=== PATIENT | male | born 1985 | race Two or more races ===

== ENCOUNTER 2018-08-06 13:31 | Inpatient (IN) | payer MEDICAID ==
[~2018-08-06] VITALS: Ht 172.7 cm; Wt 79.4 kg
[2018-08-06] MEDS: Morphine Sulfate 4mg/ml Inj (IV USE ONLY) IVP ONE ×2 (13:45→15:44)
[2018-08-06] MEDS ORDERED: Ketorolac 30mg Inj IV ONE (13:45)
--- NOTE | 2018-08-06 14:00 | NUR ---
ED Nurse Note:pt. was BIBA for abd pain N/V, pt. is A/Ox4 ambulatory, looks drawsy, placed on athletic monitor, VSS
--- NOTE | 2018-08-06 14:12 | NUR ---
ED Nurse Note:blood and urine sent to labs, IV fluids and meds given
[2018-08-06 14:13] VITALS: BP 114/68
[2018-08-06 14:16] LABS: BASOPHILS % (AUTO) 1.2 % (0.0-2.0); EOSINOPHILS % (AUTO) 0.8 % (0.0-3.0); HEMATOCRIT 40.8 % (42.0-52.0); HEMOGLOBIN 14.1 G/DL (14.2-18.0); LYMPHOCYTES % (AUTO) 30.9 % (20.0-45.0); MEAN CORPUSCULAR VOLUME 91 FL (80-99); MONOCYTES % (AUTO) 9.5 % (1.0-10.0); NEUTROPHILS % (AUTO) 57.6 % (45.0-75.0); PLATELET COUNT 151 K/UL (150-450); RED BLOOD COUNT 4.49 M/UL (4.70-6.10); RED CELL DISTRIBUTION WIDTH 14.2 % (11.6-14.8); WHITE BLOOD COUNT 6.9 K/UL (4.8-10.8)
[2018-08-06 14:19] LABS: APPEARANCE,URINE CLEAR; BILIRUBIN, URINE NEGATIVE (NEGATIVE); COLOR,URINE PALE YELLOW; GLUCOSE, URINE (UA) 4+ (NEGATIVE); KETONES,URINE NEGATIVE (NEGATIVE); LEUKOCYTE ESTERASE ,URINE NEGATIVE (NEGATIVE); NITRITE,URINE NEGATIVE (NEGATIVE); PH,URINE 6.5 (4.5-8.0); PROTEIN,URINE NEGATIVE (NEGATIVE); UROBILINOGEN,URINE NORMAL MG/DL (0.0-1.0)
[2018-08-06 14:26] LABS: ANION GAP 14 mmol/L (5-15); BLOOD UREA NITROGEN 6 mg/dL (7-18); CALCIUM 8.6 MG/DL (8.5-10.1); CARBON DIOXIDE 23 MMOL/L (21-32); CHLORIDE 99 MMOL/L (98-107); POTASSIUM 2.9 MMOL/L (3.5-5.1); SODIUM 136 MMOL/L (136-145)
[2018-08-06 14:30] LABS: ALANINE AMINOTRANSFERASE 103 U/L (12-78); ALBUMIN 3.7 G/DL (3.4-5.0); ALBUMIN/GLOBULIN RATIO 1.1 (1.0-2.7); ALKALINE PHOSPHATASE 160 U/L (46-116); ASPARTATE AMINO TRANSFERASE 216 U/L (15-37); BILIRUBIN,TOTAL 0.3 MG/DL (0.2-1.0)
--- NOTE | 2018-08-06 14:42 | Emergency Room Report ---
History of Present Illness General Chief Complaint: Abdominal Pain Source: Patient (Narayan Klein MD) Present Illness HPI 33-year-old male resents ED for evaluation. Brought in by EMS complaining of abdominal pain and vomiting. Started today. Pain is right sided, radiates from right flank to right upper quadrant. Also notes pain full urination and blood in urine. Pain is 10 out of 10, sharp, no other aggravating relieving factors. Denies any other associated symptoms (Narayan Klein MD) Allergies: Coded Allergies: No Known Allergies (Unverified , 08/06/18) Patient History Past Medical History: DM Past Surgical History: none Pertinent Family History: none Social History: Denies: smoking, alcohol use, drug use Immunizations: UTD Reviewed Nursing Documentation: PMH: Agreed; PSxH: Agreed (Narayan Klein MD) Nursing Documentation-PMH Past Medical History: No History, Except For Hx Diabetes: Yes (Narayan Klein MD) Review of Systems All Other Systems: negative except mentioned in HPI (Narayan Klein MD) Physical Exam Vital Signs Date Time Temp Pulse Resp B/P (MAP) Pulse Ox O2 Delivery O2 Flow Rate FiO2 08/06/18 13:31 97.9 120 18 99 Room Air 08/06/18 14:13 114/68 Sp02 EP Interpretation: reviewed, normal General Appearance: alert, GCS 15, non-toxic, moderate distress Head: normocephalic, atraumatic Eyes: bilateral eye normal inspection, bilateral eye PERRL ENT: hearing grossly normal, normal pharynx, no angioedema, normal voice Neck: full range of motion, supple/symm/no masses Respiratory: chest non-tender, lungs clear, normal breath sounds, speaking full sentences Cardiovascular #1: regular rate, rhythm, no edema Cardiovascular #2: 2+ carotid (R), 2+ carotid (L), 2+ radial (R), 2+ radial (L) , 2+ dorsalis pedis (R), 2+ dorsalis pedis (L) Gastrointestinal: normal bowel sounds, soft, non-distended, no guarding, no rebound, tenderness - RUQ Rectal: deferred Genitourinary: normal inspection, CVA tenderness (R) Musculoskeletal: back normal, gait/station normal, normal range of motion, non- tender Neurologic: alert, oriented x3, responsive, motor strength/tone normal, sensory intact, speech normal Psychiatric: judgement/insight normal, memory normal, mood/affect normal, no suicidal/homicidal ideation Reflexes: 3+ bicep (R), 3+ bicep (L), 3+ tricep (R), 3+ tricep (L), 3+ knee (R) , 3+ knee (L) Skin: normal color, no rash, warm/dry, well hydrated Lymphatic: no adenopathy (Narayan Klein MD) Medical Decision Making Diagnostic Impression: Primary Impression: Abdominal pain Additional Impressions: Alcohol abuse Fatty liver Tachycardia Renal calculus, bilateral Labs Test 08/06/18 13:50 08/06/18 14:00 White Blood Count 6.9 K/UL (4.8-10.8) Red Blood Count 4.49 M/UL (4.70-6.10) Hemoglobin 14.1 G/DL (14.2-18.0) Hematocrit 40.8 % (42.0-52.0) Mean Corpuscular Volume 91 FL (80-99) Mean Corpuscular Hemoglobin 31.3 PG (27.0-31.0) Mean Corpuscular Hemoglobin Concent 34.5 G/DL (32.0-36.0) Red Cell Distribution Width 14.2 % (11.6-14.8) Platelet Count 151 K/UL (150-450) Mean Platelet Volume 6.6 FL (6.5-10.1) Neutrophils (%) (Auto) 57.6 % (45.0-75.0) Lymphocytes (%) (Auto) 30.9 % (20.0-45.0) Monocytes (%) (Auto) 9.5 % (1.0-10.0) Eosinophils (%) (Auto) 0.8 % (0.0-3.0) Basophils (%) (Auto) 1.2 % (0.0-2.0) Sodium Level 136 MMOL/L (136-145) Potassium Level 2.9 MMOL/L (3.5-5.1) Chloride Level 99 MMOL/L (98-107) Carbon Dioxide Level 23 MMOL/L (21-32) Anion Gap 14 mmol/L (5-15) Blood Urea Nitrogen 6 mg/dL (7-18) Creatinine 1.0 MG/DL (0.55-1.30) Estimat Glomerular Filtration Rate > 60 mL/min (>60) Glucose Level 428 MG/DL (74-106) Calcium Level 8.6 MG/DL (8.5-10.1) Total Bilirubin 0.3 MG/DL (0.2-1.0) Aspartate Amino Transf (AST/SGOT) 216 U/L (15-37) Alanine Aminotransferase (ALT/SGPT) 103 U/L (12-78) Alkaline Phosphatase 160 U/L (46-116) Total Protein 7.1 G/DL (6.4-8.2) Albumin 3.7 G/DL (3.4-5.0) Globulin 3.4 g/dL Albumin/Globulin Ratio 1.1 (1.0-2.7) Lipase 444 U/L (73-393) Urine Color Pale yellow Urine Appearance Clear Urine pH 6.5 (4.5-8.0) Urine Specific [place] 1.005 (1.005-1.035) Urine Protein Negative (NEGATIVE) Urine Glucose (UA) 4+ (NEGATIVE) Urine Ketones Negative (NEGATIVE) Urine Blood 5+ (NEGATIVE) Urine Nitrite Negative (NEGATIVE) Urine Bilirubin Negative (NEGATIVE) Urine Urobilinogen Normal MG/DL (0.0-1.0) Urine Leukocyte Esterase Negative (NEGATIVE) Urine RBC 30-40 /HPF (0 - 0) Urine WBC 0 /HPF (0 - 0) Urine Squamous Epithelial Cells Occasional /LPF Urine Bacteria Occasional /HPF (NONE) Urine Opiates Screen Negative (NEGATIVE) Urine Barbiturates Screen Negative (NEGATIVE) Phencyclidine (PCP) Screen Negative (NEGATIVE) Urine Amphetamines Screen Negative (NEGATIVE) Urine Benzodiazepines Screen Negative (NEGATIVE) Urine Cocaine Screen Negative (NEGATIVE) Urine Marijuana (THC) Screen Negative (NEGATIVE) (Narayan Klein MD) ER Course Patient was endorsed to me by Dr. klein. Patient was noted to have significant abdominal pain. He reports recent alcohol intake and states he only drank 2 beers. Patient's blood alcohol was noted to be greater than 300. Liver function tests show some evidence of alcoholic hepatitis. Patient's lipase was noted to be somewhat elevated. CT the abdomen pelvis read by radiology showed: Patient noted to be somewhat tachycardic. He was started on IV fluids and as well as IV acid blockers by previous physician. Patient was noted to have some significant abdominal pain and will likely require further inpatient work-up. Numerous small nonobstructive bilateral renal stones. No ureteral or bladder stone. No renal obstruction. Mild left perinephric stranding. Incidental: Normal appendix. Colonic diverticulosis without acute diverticulitis. Small bilateral fat-containing inguinal hernias. Small spleen. Fatty enlarged liver. Distended gallbladder. Possible sludge. No CT evidence of pancreatitis. Small peripancreatic lymph nodes. Mild bibasilar lung atelectasis. Patient was discussed with Dr. Zhang Bella who is covering for [facility] for inpatient management due to panel physician Labs Test 08/06/18 13:50 08/06/18 14:00 White Blood Count 6.9 K/UL (4.8-10.8) Red Blood Count 4.49 M/UL (4.70-6.10) Hemoglobin 14.1 G/DL (14.2-18.0) Hematocrit 40.8 % (42.0-52.0) Mean Corpuscular Volume 91 FL (80-99) Mean Corpuscular Hemoglobin 31.3 PG (27.0-31.0) Mean Corpuscular Hemoglobin Concent 34.5 G/DL (32.0-36.0) Red Cell Distribution Width 14.2 % (11.6-14.8) Platelet Count 151 K/UL (150-450) Mean Platelet Volume 6.6 FL (6.5-10.1) Neutrophils (%) (Auto) 57.6 % (45.0-75.0) Lymphocytes (%) (Auto) 30.9 % (20.0-45.0) Monocytes (%) (Auto) 9.5 % (1.0-10.0) Eosinophils (%) (Auto) 0.8 % (0.0-3.0) Basophils (%) (Auto) 1.2 % (0.0-2.0) Sodium Level 136 MMOL/L (136-145) Potassium Level 2.9 MMOL/L (3.5-5.1) Chloride Level 99 MMOL/L (98-107) Carbon Dioxide Level 23 MMOL/L (21-32) Anion Gap 14 mmol/L (5-15) Blood Urea Nitrogen 6 mg/dL (7-18) Creatinine 1.0 MG/DL (0.55-1.30) Estimat Glomerular Filtration Rate > 60 mL/min (>60) Glucose Level 428 MG/DL (74-106) Calcium Level 8.6 MG/DL (8.5-10.1) Total Bilirubin 0.3 MG/DL (0.2-1.0) Aspartate Amino Transf (AST/SGOT) 216 U/L (15-37) Alanine Aminotransferase (ALT/SGPT) 103 U/L (12-78) Alkaline Phosphatase 160 U/L (46-116) Total Protein 7.1 G/DL (6.4-8.2) Albumin 3.7 G/DL (3.4-5.0) Globulin 3.4 g/dL Albumin/Globulin Ratio 1.1 (1.0-2.7) Lipase 444 U/L (73-393) Serum Alcohol 319 mg/dL Urine Color Pale yellow Urine Appearance Clear Urine pH 6.5 (4.5-8.0) Urine Specific [place] 1.005 (1.005-1.035) Urine Protein Negative (NEGATIVE) Urine Glucose (UA) 4+ (NEGATIVE) Urine Ketones Negative (NEGATIVE) Urine Blood 5+ (NEGATIVE) Urine Nitrite Negative (NEGATIVE) Urine Bilirubin Negative (NEGATIVE) Urine Urobilinogen Normal MG/DL (0.0-1.0) Urine Leukocyte Esterase Negative (NEGATIVE) Urine RBC 30-40 /HPF (0 - 0) Urine WBC 0 /HPF (0 - 0) Urine Squamous Epithelial Cells Occasional /LPF Urine Bacteria Occasional /HPF (NONE) Urine Opiates Screen Negative (NEGATIVE) Urine Barbiturates Screen Negative (NEGATIVE) Phencyclidine (PCP) Screen Negative (NEGATIVE) Urine Amphetamines Screen Negative (NEGATIVE) Urine Benzodiazepines Screen Negative (NEGATIVE) Urine Cocaine Screen Negative (NEGATIVE) Urine Marijuana (THC) Screen Negative (NEGATIVE) (Igor Jackson MD) Last Vital Signs Date Time Temp Pulse Resp B/P (MAP) Pulse Ox O2 Delivery O2 Flow Rate FiO2 08/06/18 14:13 97.9 100 18 114/68 99 Room Air (Narayan Klein MD) Status: unchanged (Igor Jackson MD) Disposition: ADMITTED INPATIENT Condition: Serious Narayan Klein MD August 06, 2018 14:42 Igor Jackson MD August 06, 2018 15:42
[2018-08-06 15:19] VITALS: BP 124/79
[2018-08-06] MEDS ORDERED: LORazepam Inj 2mg/ml 1ml IV ONE (15:45)
[2018-08-06] MEDS ORDERED: METFORMIN HCL1000 M1 ORAL (15:52)
--- NOTE | 2018-08-06 17:02 | NUR ---
ED Nurse Note:called report to [address] given to Sujata pt. was taken up stairs
[2018-08-06 17:10] VITALS: BP 132/95
--- NOTE | 2018-08-06 17:10 | NUR ---
NURSE NOTES: ADMITTED A 33YR OLD MALE WITH DX OF CHOLELITHIASIS. AWAKE/LERT. ADMISSION CARE DONE SEE ADM. ASSESSMENT.
--- NOTE | 2018-08-06 17:34 | NUR ---
NURSE NOTES: DR.S GALLEGOS CALLED FOR ADM ORDERS,LEFT MESSAGE TO RETURN CALL.
[2018-08-06] MEDS ORDERED: Morphine Sulfate 4mg/ml Inj (IV USE ONLY) IVP SCH (17:45)
[2018-08-06] MEDS ORDERED: Morphine Sulfate 2mg/ml Inj(IV/IM USE ONLY) IVP PRN (18:15)
[2018-08-06] MEDS: NovoLOG Insulin Flexpen SUBQ SCH ×2 (18:41→21:13)
[2018-08-06] MEDS: NS w/KCl 20mEq 1000ml 1,000 ML IV SCH (18:44)
[2018-08-06] MEDS ORDERED: GLIPIZIDE5 G1 MC (18:44)
--- NOTE | 2018-08-06 18:52 | NUR ---
NURSE NOTES: RESTING IN BED. IN NO DISTRESS.
--- NOTE | 2018-08-06 18:55 | History and Physical ---
History of Present Illness General Reason for Hospitalization: Abdominal Pain Present Illness HPI 33 year old male with history of diabetes mellitus diagnosed at age 17, reported to have a previous weight of 235 lbs and non compliant with medications until 2 years ago when he was able to establish medical care with PCP in [place]. He was started on Metformin and Glipizide and reports improvement in his HbA1c from 9.5 to 7.7 most recently. He went on an alcohol binge 5 days ago after his father and reports to have been drinking tequila , beer and anything else he could to numb his emotional pain. Today, he came in to the ER via EMS due to acute RUQ pain. Initial work up showed elevated LFT's with alcohol pattern, elevated lipase 444, glucose 428, K 2.9 and replacement with 40 meq given in the ER, CT abdomen with bilateral NON obstructing kidney stones. He is admitted for further medical management. The patient reports that his urine was pink after arriving to the floor and he thinks he could have passed a kidney stone. His pain is 5-6/10 in the RUQ and radiates to the R groin. He has been vomiting and denies hematemesis. No prior history of etoh withdrawal, HTN, CHF, CKD, CAD. Denies any NSAID intake. Allergies: Coded Allergies: No Known Allergies (Unverified , 08/06/18) Medication History Scheduled Glipizide (Glipizide), 5 GM [facility] DAILY, (Reported) Metformin Hcl* (Metformin Hcl*), 1,000 MG ORAL BID, (Reported) Patient History Healthcare decision maker SELF Resuscitation status Full Code Advanced Directive on File No Review of Systems Constitutional: Reports: sweats, weakness ENT: Reports: no symptoms Respiratory: Reports: no symptoms Cardiovascular: Reports: no symptoms Gastrointestinal: Reports: abdominal pain, vomiting Psychiatric: Reports: anxiety, depressed feelings, emotional problems All Other Systems: negative except mentioned in HPI Physical Exam General Appearance: WD/WN, moderate distress, alert oriented x3 Lines, tubes and drains: peripheral HEENT: normocephalic, EOMI Neck: supple Respiratory/Chest: chest wall non-tender, decreased breath sounds Cardiovascular/Chest: tachycardia Abdomen: hypoactive bowel sounds, guarding, tender, other - RUQ TTP, no rebound tenderness Extremities: normal range of motion, non-pitting Skin Exam: normal pigmentation Neurologic: building principal II-XII grossly normal Musculoskeletal: normal muscle bulk Last 24 Hour Vital Signs Date Time Temp Pulse Resp B/P (MAP) Pulse Ox O2 Delivery O2 Flow Rate FiO2 08/06/18 17:22 Room Air 08/06/18 17:10 97.9 109 20 132/95 (107) 98 08/06/18 17:00 97.9 101 18 114/76 99 Room Air 08/06/18 16:12 97.9 08/06/18 15:19 97.9 105 18 124/79 99 Room Air 08/06/18 14:48 97.9 08/06/18 14:13 97.9 100 18 114/68 99 Room Air 08/06/18 13:40 120 18 Room Air 08/06/18 13:31 97.9 120 18 99 Room Air Laboratory Tests Test 08/06/18 13:50 08/06/18 14:00 White Blood Count 6.9 K/UL (4.8-10.8) Red Blood Count 4.49 M/UL (4.70-6.10) L Hemoglobin 14.1 G/DL (14.2-18.0) L Hematocrit 40.8 % (42.0-52.0) L Mean Corpuscular Volume 91 FL (80-99) Mean Corpuscular Hemoglobin 31.3 PG (27.0-31.0) H Mean Corpuscular Hemoglobin Concent 34.5 G/DL (32.0-36.0) Red Cell Distribution Width 14.2 % (11.6-14.8) Platelet Count 151 K/UL (150-450) Mean Platelet Volume 6.6 FL (6.5-10.1) Neutrophils (%) (Auto) 57.6 % (45.0-75.0) Lymphocytes (%) (Auto) 30.9 % (20.0-45.0) Monocytes (%) (Auto) 9.5 % (1.0-10.0) Eosinophils (%) (Auto) 0.8 % (0.0-3.0) Basophils (%) (Auto) 1.2 % (0.0-2.0) Sodium Level 136 MMOL/L (136-145) Potassium Level 2.9 MMOL/L (3.5-5.1) L Chloride Level 99 MMOL/L (98-107) Carbon Dioxide Level 23 MMOL/L (21-32) Anion Gap 14 mmol/L (5-15) Blood Urea Nitrogen 6 mg/dL (7-18) L Creatinine 1.0 MG/DL (0.55-1.30) Estimat Glomerular Filtration Rate > 60 mL/min (>60) Glucose Level 428 MG/DL (74-106) H Calcium Level 8.6 MG/DL (8.5-10.1) Total Bilirubin 0.3 MG/DL (0.2-1.0) Aspartate Amino Transf (AST/SGOT) 216 U/L (15-37) H Alanine Aminotransferase (ALT/SGPT) 103 U/L (12-78) H Alkaline Phosphatase 160 U/L (46-116) H Total Protein 7.1 G/DL (6.4-8.2) Albumin 3.7 G/DL (3.4-5.0) Globulin 3.4 g/dL Albumin/Globulin Ratio 1.1 (1.0-2.7) Lipase Pending Serum Alcohol 319 mg/dL Urine Color Pale yellow Urine Appearance Clear Urine pH 6.5 (4.5-8.0) Urine Specific [place] 1.005 (1.005-1.035) Urine Protein Negative (NEGATIVE) Urine Glucose (UA) 4+ (NEGATIVE) H Urine Ketones Negative (NEGATIVE) Urine Blood 5+ (NEGATIVE) H Urine Nitrite Negative (NEGATIVE) Urine Bilirubin Negative (NEGATIVE) Urine Urobilinogen Normal MG/DL (0.0-1.0) Urine Leukocyte Esterase Negative (NEGATIVE) Urine RBC 30-40 /HPF (0 - 0) H Urine WBC 0 /HPF (0 - 0) Urine Squamous Epithelial Cells Occasional /LPF Urine Bacteria Occasional /HPF (NONE) Urine Opiates Screen Negative (NEGATIVE) Urine Barbiturates Screen Negative (NEGATIVE) Phencyclidine (PCP) Screen Negative (NEGATIVE) Urine Amphetamines Screen Negative (NEGATIVE) Urine Benzodiazepines Screen Negative (NEGATIVE) Urine Cocaine Screen Negative (NEGATIVE) Urine Marijuana (THC) Screen Negative (NEGATIVE) Height (Feet): 5 Height (Inches): 8.00 Weight (Pounds): 175 Medications Current Medications Medications (Trade) Dose Ordered Sig/Landen Route PRN Reason Start Time Stop Time Status Last Admin Dose Admin Bisacodyl (Dulcolax) 10 mg HSPRN PRN RECTAL Constipation 08/06/18 18:15 09/05/18 18:14 Dextrose (Dextrose 50%) 25 ml Q30M PRN IV Hypoglycemia 08/06/18 18:15 09/05/18 18:14 Dextrose (Dextrose 50%) 50 ml Q30M PRN IV Hypoglycemia 08/06/18 18:15 09/05/18 18:14 Docusate Sodium (Colace) 100 mg EVERY 12 HOURS ORAL 08/06/18 21:00 09/05/18 20:59 Enoxaparin Sodium (Lovenox) 40 mg Q24H SUBQ 08/06/18 20:00 09/05/18 19:59 Famotidine (Pepcid) 40 mg DAILY ORAL 08/07/18 09:00 09/06/18 08:59 Insulin Aspart (NovoLOG) BEFORE MEALS AND HS SUBQ 08/06/18 21:00 09/05/18 20:59 Morphine Sulfate (Morphine Sulfate) 2 mg Q4H PRN IVP Moderate Pain (Pain Scale 4-6) 08/06/18 18:15 08/13/18 18:14 Morphine Sulfate (Morphine Sulfate) 4 mg ONCE IVP 08/06/18 17:45 08/06/18 20:00 08/06/18 18:11 Morphine Sulfate (Morphine Sulfate) 4 mg Q4H PRN IVP Severe Pain (Pain Scale 7-10) 08/06/18 18:15 08/13/18 18:14 Ondansetron HCl (Zofran) 4 mg Q6H PRN IVP Nausea & Vomiting 08/06/18 18:15 09/05/18 18:14 Potassium Chloride (K-Dur) 20 meq ONCE ORAL 08/06/18 18:15 08/06/18 20:00 Sodium Chloride 1,000 ml @ 100 mls/hr Q10H IV 08/06/18 19:00 09/05/18 18:59 Temazepam (Restoril) 15 mg HSPRN PRN ORAL Insomnia 08/06/18 18:15 08/13/18 18:[address] abdomen result: Numerous small nonobstructive bilateral renal stones. No ureteral or bladder stone. No renal obstruction. Mild left perinephric stranding. Incidental: Normal appendix. Colonic diverticulosis without acute diverticulitis. Small bilateral fat-containing inguinal hernias. Small spleen. Fatty enlarged liver. Distended gallbladder. Possible sludge. No CT evidence of pancreatitis. Small peripancreatic lymph nodes. Mild bibasilar lung atelectasis. Assessment/Plan Status Narrative 33 year old male admitted with abdominal pain after 5 day alcohol binge intake since the of his father. # Abdominal pain # Alcohol intoxication and at risk for acute alcohol withdrawal - IVF started in the ER will be continued with KCL 20 meq replacement - Ativan PRN - IV banana bag ordered to run tonight - PPI # Elevated LFT's Fatty liver by CT Alcoholic pattern with AST>ALT Trend liver enzymes in AM Counselling for alcohol cessation Consider GI consult if not responsive to conservative treatment INR in am to assess synthetic liver function # Hypokalemia Replete K as needed. K level tonight and AM Magnesium level tonight and if less than 2 recommend repletion # Elevated lipase Etiology likely alcoholic pancreatitis Trend lipase level in AM Diet ordered and recommend gradual CHO controlled diet. If emesis developes, will need limitation, clear diet vs NPO # Diabetes Mellitus Hold Metformin and Glipizide ( HOME medications ) for now. Hb A1c and insulin sliding scale ordered. #Kidney stones Monitor urine output. If persistent R groin pain, follow up US might be needed - urology evaluation. # DVT ppx with enoxaparin FULL CODE Zhang Bella MD August 06, 2018 18:55
[2018-08-06] MEDS ORDERED: NS w/KCl 20mEq 1000ml 1,000 ML IV SCH ×2 (19:00→19:08)
[2018-08-06 19:14] LABS: POTASSIUM 3.6 MMOL/L (3.5-5.1)
--- NOTE | 2018-08-06 19:18 | NUR ---
HAND-OFF: Report given to lilia tucker rn.
[2018-08-06] MEDS: LORazepam 1mg tab ORAL PRN (19:59)
[2018-08-06 20:00] VITALS: BP 129/90
[2018-08-06] MEDS: Enoxaparin 40mg Inj SUBQ SCH (20:00)
--- NOTE | 2018-08-06 20:25 | NUR ---
NURSE NOTES: Received patient awake in bed, on his cellphone, able to verbalize needs, no s/s of acute distress. Hands have a slight tremor. IV access asymptomatic, on IVF running 50ml/hr. Fall and safety precautions taken. Will monitor blood glucose closely.
[2018-08-06] MEDS ORDERED: Thiamine 100mg in D5W 55ml IVPB SCH (20:30)
[2018-08-06] MEDS ORDERED: Folic Acid 1 MG, Magnesium Sulfate 2,000 MG, Multivitamin - 12 Injection 10 ML in Sodiu... IV SCH (21:00)
[2018-08-06] MEDS ORDERED: NovoLOG Insulin Flexpen SUBQ SCH (21:00)
[2018-08-06] MEDS: Docusate 100mg cap ORAL SCH (21:12)
[2018-08-06] MEDS: Morphine Sulfate 4mg/ml Inj (IV USE ONLY) IVP PRN (21:25)
[2018-08-07] VITALS: BP 157/98
[2018-08-07] MEDS: LORazepam 1mg tab ORAL PRN ×3 (00:23→12:21)
[2018-08-07] MEDS: Morphine Sulfate 4mg/ml Inj (IV USE ONLY) IVP PRN ×4 (02:49→18:11)
[2018-08-07 04:00] VITALS: BP 149/97
[2018-08-07] MEDS: NovoLOG Insulin Flexpen SUBQ SCH ×4 (05:56→20:58)
--- NOTE | 2018-08-07 07:30 | NUR ---
NURSE NOTES: Patient is in bed awake and able to verbalize needs. Stable. Denies SOB. Patient is running IVF as ordered. Patient encouraged to use call light for assistance, verbalized understanding. Patient is in bed in locked and lowest position with call light within reach. All safety measures provided. Will continue to monitor.
--- NOTE | 2018-08-07 07:35 | NUR ---
HAND-OFF: Report given to NANCY Morris.
[2018-08-07 08:00] VITALS: BP 157/111
[2018-08-07] MEDS: Docusate 100mg cap ORAL SCH ×2 (08:45→20:32)
[2018-08-07 08:58] LABS: BASOPHILS % (AUTO) 1.8 % (0.0-2.0); EOSINOPHILS % (AUTO) 2.3 % (0.0-3.0); HEMOGLOBIN 13.5 G/DL (14.2-18.0); LYMPHOCYTES % (AUTO) 30.1 % (20.0-45.0); MEAN CORPUSCULAR VOLUME 91 FL (80-99); MONOCYTES % (AUTO) 6.8 % (1.0-10.0); PLATELET COUNT 143 K/UL (150-450); RED BLOOD COUNT 4.27 M/UL (4.70-6.10); RED CELL DISTRIBUTION WIDTH 14.6 % (11.6-14.8); WHITE BLOOD COUNT 5.3 K/UL (4.8-10.8)
[2018-08-07] MEDS ORDERED: chlordiazePOXIDE 25mg Cap ORAL SCH (09:00)
[2018-08-07 09:07] LABS: INR 1.1 (0.9-1.1)
[2018-08-07 09:41] LABS: ALANINE AMINOTRANSFERASE 93 U/L (12-78); ALBUMIN 3.7 G/DL (3.4-5.0); ALBUMIN/GLOBULIN RATIO 1.2 (1.0-2.7); ALKALINE PHOSPHATASE 108 U/L (46-116); ANION GAP 10 mmol/L (5-15); ASPARTATE AMINO TRANSFERASE 115 U/L (15-37); BILIRUBIN,TOTAL 0.7 MG/DL (0.2-1.0); BLOOD UREA NITROGEN 5 mg/dL (7-18); CALCIUM 8.9 MG/DL (8.5-10.1); CARBON DIOXIDE 28 MMOL/L (21-32); CHLORIDE 100 MMOL/L (98-107); CREATININE 0.7 MG/DL (0.55-1.30); POTASSIUM 3.5 MMOL/L (3.5-5.1); SODIUM 138 MMOL/L (136-145)
--- NOTE | 2018-08-07 10:03 | Diagnostic Imaging Report ---
Indication: Abdominal pain Technique: Continuous helical transaxial imaging of the abdomen and pelvis was obtained from the lung bases to the pubic symphysis. No intravenous contrast was administered. Coronal 2-D reformats were also obtained. Automatic Exposure Control was utilized. Total Dose length Product (DLP): 699.[address] Dose Index Volume (CTDIvol): 12.47 mGy Comparison: none Findings: There is moderate to severe low-attenuation of the liver which is enlarged. There are multiple tiny punctate nonobstructive stones within both kidneys. There is no hydronephrosis demonstrated. The urinary bladder is unremarkable. Prostate calcification noted. No free fluid identified. Appendix is normal. Bowel gas pattern is nonobstructive. Gallbladder sludge probably present given that the fused slightly high attenuation of the gallbladder. Diverticula noted throughout the colon. IMPRESSION: Nonobstructive bilateral nephrolithiasis. Hepatomegaly with fatty infiltration Gallbladder sludge Mild diverticulosis of the colon. No definite diverticulitis. Normal appendix The CT scanner at [facility] is accredited by the [employer] and the scans are performed using dose optimization techniques as appropriate to a performed exam including Automatic Exposure control.
--- NOTE | 2018-08-07 10:05 | Diagnostic Imaging Report ---
Indication:Abdominal pain Technique: Grayscale and duplex Doppler imaging of the abdomen performed. Comparison: None Findings: The liver is enlarged measuring 19 cm and echogenic consistent with fatty infiltration. The gallbladder is notable for sludge. No definite gallstones are identified. Sonographic Walters's is equivocal as the patient is altered and intoxicated. The demonstrated part of the pancreas, aorta and IVC show no abnormalities. No hydronephrosis demonstrated. There are few calcifications suspected within the left kidney probably nonobstructive stones. The spleen is unremarkable. There is no biliary ductal dilatation identified. Doppler evaluation of the main portal vein shows patency. There is no ascites. No hydronephrosis seen. Impression: Hepatomegaly with fatty infiltration. Probable stones in the left kidney. No hydronephrosis. Gallbladder sludge Findings discussed and communicated with the emergency room physician
[2018-08-07 12:00] VITALS: BP 178/103
--- NOTE | 2018-08-07 12:01 | General Progress Note ---
Assessment/Plan Assessment/Plan: 33 year old male admitted with abdominal pain after 5 day alcohol binge intake since the of his father. #Alcoholic pancreatitis - NPO, IVF - IV morphine - monitor LFTs #Alcoholism #Fatty liver disease #Alcohol withdrawal syndrome #Acute stress disorder related to of his father -start scheduled Librium -Ativan prn -monitor lytes -Psychiatry consulted #Hypokalemia, resolved -continue to monitor #Diabetes Mellitus, uncontrolled due to alcohol use -Hold Metformin and Glipizide insulin sliding scale ordered. #Kidney stones -Monitor urine output. # DVT ppx with enoxaparin Subjective Date patient seen: August 07, 2018 Time patient seen: 09:00 ROS Limited/Unobtainable: No Constitutional: Denies: chills, fever Cardiovascular: Denies: chest pain Respiratory: Denies: cough Gastrointestinal/Abdominal: Reports: abdominal pain; Denies: abdomen distended Genitourinary: Denies: burning Allergies: Coded Allergies: No Known Allergies (Unverified , 08/06/18) Subjective Medicine follow up acute alcoholic pancreatitis, alcohol withdrawal, hypokalemia. No new complaints. Reports anxiety, asking for IV Ativan. Objective Last 24 Hour Vital Signs Date Time Temp Pulse Resp B/P (MAP) Pulse Ox O2 Delivery O2 Flow Rate FiO2 08/07/18 09:00 Room Air 08/07/18 08:00 98.9 82 17 157/111 (126) 99 08/07/18 04:00 98.0 92 18 149/97 (114) 97 08/07/18 03:19 98.7 08/07/18 00:00 98.7 107 21 157/98 (117) 98 08/06/18 21:00 Room Air 08/06/18 20:00 98.0 95 18 129/90 (103) 98 08/06/18 18:41 97.9 08/06/18 17:22 Room Air 08/06/18 17:10 97.9 109 20 132/95 (107) 98 08/06/18 17:00 97.9 101 18 114/76 99 Room Air 08/06/18 16:12 97.9 08/06/18 15:19 97.9 105 18 124/79 99 Room Air 08/06/18 14:48 97.9 08/06/18 14:13 97.9 100 18 114/68 99 Room Air 08/06/18 13:40 120 18 Room Air 08/06/18 13:31 97.9 120 18 99 Room Air Intake and Output 08/06/18 08/07/18 19:00 07:00 Intake Total 200 ml 900 ml Output Total 750 ml Balance 200 ml 150 ml Intake Oral 200 ml 300 ml IV Total 600 ml Output Urine Total 750 ml # Voids 2 # Bowel Movements 1 Laboratory Tests 08/06/18 13:50: White Blood Count 6.9, Red Blood Count 4.49L, Hemoglobin 14.1L, Hematocrit 40.8L , Mean Corpuscular Volume 91, Mean Corpuscular Hemoglobin 31.3H, Mean Corpuscular Hemoglobin Concent 34.5, Red Cell Distribution Width 14.2, Platelet Count 151, Mean Platelet Volume 6.6, Neutrophils (%) (Auto) 57.6, Lymphocytes (% ) (Auto) 30.9, Monocytes (%) (Auto) 9.5, Eosinophils (%) (Auto) 0.8, Basophils ( %) (Auto) 1.2, Sodium Level 136, Potassium Level 2.9L, Chloride Level 99, Carbon Dioxide Level 23, Anion Gap 14, Blood Urea Nitrogen 6L, Creatinine 1.0, Estimat Glomerular Filtration Rate > 60, Glucose Level 428H, Calcium Level 8.6, Total Bilirubin 0.3, Aspartate Amino Transf (AST/SGOT) 216H, Alanine Aminotransferase (ALT/SGPT) 103H, Alkaline Phosphatase 160H, Total Protein 7.1, Albumin 3.7, Globulin 3.4, Albumin/Globulin Ratio 1.1, Lipase [Pending], Serum Alcohol 319 08/06/18 14:00: Urine Color Pale yellow, Urine Appearance Clear, Urine pH 6.5, Urine Specific Meally 1.005, Urine Protein Negative, Urine Glucose (UA) 4+H, Urine Ketones Negative, Urine Blood 5+H, Urine Nitrite Negative, Urine Bilirubin Negative, Urine Urobilinogen Normal, Urine Leukocyte Esterase Negative, Urine RBC 30-40H, Urine WBC 0, Urine Squamous Epithelial Cells Occasional, Urine Bacteria Occasional, Urine Opiates Screen Negative, Urine Barbiturates Screen Negative, Phencyclidine (PCP) Screen Negative, Urine Amphetamines Screen Negative, Urine Benzodiazepines Screen Negative, Urine Cocaine Screen Negative, Urine Marijuana (THC) Screen Negative 08/06/18 18:35: Potassium Level 3.6, Magnesium Level 1.6L 08/07/18 07:20: White Blood Count 5.3, Red Blood Count 4.27L, Hemoglobin 13.5L, Hematocrit 39.0L , Mean Corpuscular Volume 91, Mean Corpuscular Hemoglobin 31.5H, Mean Corpuscular Hemoglobin Concent 34.6, Red Cell Distribution Width 14.6, Platelet Count 143L, Mean Platelet Volume 7.2, Neutrophils (%) (Auto) 59.0, Lymphocytes ( %) (Auto) 30.1, Monocytes (%) (Auto) 6.8, Eosinophils (%) (Auto) 2.3, Basophils (%) (Auto) 1.8, Sodium Level 138, Potassium Level 3.5, Chloride Level 100, Carbon Dioxide Level 28, Anion Gap 10, Blood Urea Nitrogen 5L, Creatinine 0.7, Estimat Glomerular Filtration Rate > 60, Glucose Level 137#H, Calcium Level 8.9 , Total Bilirubin 0.7, Aspartate Amino Transf (AST/SGOT) 115H, Alanine Aminotransferase (ALT/SGPT) 93H, Alkaline Phosphatase 108, Total Protein 6.8, Albumin 3.7, Globulin 3.1, Albumin/Globulin Ratio 1.2, Lipase 182, Magnesium Level 1.9, Prothrombin Time 11.2, Prothromb Time International Ratio 1.1, Hemoglobin A1c 8.7H Height (Feet): 5 Height (Inches): 8.00 Weight (Pounds): 175 General Appearance: no apparent distress, alert Neck: normal alignment, supple Cardiovascular: normal peripheral pulses, normal rate, regular rhythm Respiratory/Chest: lungs clear, normal breath sounds, no respiratory distress Abdomen: non tender, soft Neurologic: ladle patcher II-XII grossly normal, no motor/sensory deficits, alert, oriented x 3, responsive Ricky Torres MD August 07, 2018 12:01
--- NOTE | 2018-08-07 12:15 | NUR ---
NURSE NOTES: Reported bp 178/[address] Austin, received new orders to give Ativan. Orders read back and carried out. Patient is stable.
[2018-08-07] MEDS ORDERED: LORazepam Inj 2mg/ml 1ml IV PRN (12:30)
[2018-08-07] MEDS: NS w/KCl 20mEq 1000ml 1,000 ML IV SCH (13:08)
--- NOTE | 2018-08-07 13:26 | NUR ---
[employer] 33 Y/O MALE FROM HOME CAME [place] [facility] CC:ABDOMINAL PAIN SI:CHOLELITHIASIS VS: BP 114/68, P 120, RR 18, SpO2 99 RBC 4.49, Hgb 14.1, Hct 40.8, BUN 5, AST 216, ALT 103, ALK PHOS 160, LIPASE 444 ABDOMINAL US: Probable stones in the left kidney. No hydronephrosis. Gallbladder sludge. IS;MORPHINE SULFATE 4mg IVP NS x1L IV NOVOLOG SUBQ LIBRIUM 25mg 3E MED/SURG
[2018-08-07] MEDS: Thiamine 100mg tab ORAL SCH (14:40)
[2018-08-07] MEDS: chlordiazePOXIDE 25mg Cap ORAL SCH ×2 (14:40→18:09)
[2018-08-07 16:00] VITALS: BP 154/111
--- NOTE | 2018-08-07 18:15 | Consultation ---
DATE OF CONSULTATION: 08/07/2018 HISTORY OF PRESENT ILLNESS: This is a 33-year-old male with a history of alcohol dependence who has been admitted to the hospital for abdominal pain. The patient has been presenting with anxiety, agitation, high blood pressure, high heart rate, nausea, vomiting, headaches. The patient also has anxiety. Denies any depressive or psychotic symptoms. No manic or psychotic symptoms. No suicidal or homicidal ideation. The patient was not able to sleep last night due to anxiety. PAST PSYCHIATRIC HISTORY: He denies any psychiatric illness. Denies any depression, psychiatry hospitalization, or suicide attempt. PAST MEDICAL HISTORY: Fatty liver, renal calculus bilateral, diabetes. SUBSTANCE ABUSE HISTORY: Significant for alcohol dependence. Toxicology was negative for any other drugs. MENTAL STATUS EXAMINATION: The patient is alert and oriented times self, place, and situation he is in. Mood is anxious. Affect is constricted. Congruent with mood. Thought process is concrete. Thought content, no suicidal, homicidal ideation. ASSESSMENT: AXIS I: 1. Alcohol dependence. 2. Alcohol withdrawal. AXIS II: Deferred. AXIS III: As above. AXIS IV: Low. AXIS V: 50. PLAN: 1. We will start the patient on Librium and change it to 50 mg t.i.d. 2. Continue the Ativan p.r.n. 3. Continue thiamine. 4. Continue folate. 5. We will assess the patient for anxiety disorder. Prince Monaco M.D. DR: Aleksandr JOB#: [id number] CC:
--- NOTE | 2018-08-07 19:36 | NUR ---
HAND-OFF: Report given to Pauline CRUZ. Patient is stable.
--- NOTE | 2018-08-07 19:45 | NUR ---
NURSE NOTES: patient received. patient in no acute distress at this time. patient complains of no pain at this time. patietn awake alert nad oritende x4. IV intaft patent an asymptomatic. bed in lowest position and lockede. call yen edmond. [facility]
[2018-08-07 20:00] VITALS: BP 141/106
--- NOTE | 2018-08-07 20:21 | NUR ---
NURSE NOTES: per patient, patient claims he is no nauseous or throwing up and wants to be taken off NPO. says he is hungry. Dr. Tyson was called. Dr. Lopes hospital nurse liaison ordered clear liquid advance to tolerated for patient. will continue to monitor.
[2018-08-07] MEDS: Enoxaparin 40mg Inj SUBQ SCH (20:33)
[2018-08-08] VITALS: BP 149/107
[2018-08-08] MEDS: Morphine Sulfate 4mg/ml Inj (IV USE ONLY) IVP PRN (00:56)
[2018-08-08 04:00] VITALS: BP 144/95
[2018-08-08] MEDS: NovoLOG Insulin Flexpen SUBQ SCH ×2 (06:34→11:22)
--- NOTE | 2018-08-08 06:41 | NUR ---
NURSE NOTES: after giving patient morphine for pain, patient complains of itchiness right after. will let morning shift RN know.
[2018-08-08 07:02] LABS: ANION GAP 10 mmol/L (5-15); BLOOD UREA NITROGEN 5 mg/dL (7-18); CALCIUM 9.6 MG/DL (8.5-10.1); CARBON DIOXIDE 28 MMOL/L (21-32); CHLORIDE 98 MMOL/L (98-107); CREATININE 0.9 MG/DL (0.55-1.30); POTASSIUM 3.6 MMOL/L (3.5-5.1); SODIUM 136 MMOL/L (136-145)
[2018-08-08 07:07] LABS: BASOPHILS % (AUTO) 1.6 % (0.0-2.0); EOSINOPHILS % (AUTO) 4.7 % (0.0-3.0); HEMOGLOBIN 13.5 G/DL (14.2-18.0); LYMPHOCYTES % (AUTO) 31.3 % (20.0-45.0); MEAN CORPUSCULAR VOLUME 94 FL (80-99); MONOCYTES % (AUTO) 9.3 % (1.0-10.0); NEUTROPHILS % (AUTO) 53.1 % (45.0-75.0); PLATELET COUNT 140 K/UL (150-450); RED BLOOD COUNT 4.26 M/UL (4.70-6.10); RED CELL DISTRIBUTION WIDTH 14.7 % (11.6-14.8)
--- NOTE | 2018-08-08 07:35 | NUR ---
NURSE NOTES: WALKING ROUNDS DONE WITH OUTGOING RN. PATIENT ASLEEP BUT EASY TO AROUSE. QUESTIONS ANSWERED, NEEDS MET AT THIS TIME. DENIES PAIN. DISCUSSED PLAN OF CARE FOR THE DAY. VERBALIZED UNDERSTANDING. CALL LIGHT WITHIN REACH. BED IN LOW AND LOCKED POSITION.
[2018-08-08 08:00] VITALS: BP 130/105
[2018-08-08] MEDS: chlordiazePOXIDE 25mg Cap ORAL SCH ×2 (08:33→13:11)
[2018-08-08] MEDS: Thiamine 100mg tab ORAL SCH (08:33)
[2018-08-08] MEDS: Docusate 100mg cap ORAL SCH (08:34)
[2018-08-08] MEDS: NS w/KCl 20mEq 1000ml 1,000 ML IV SCH (08:35)
--- NOTE | 2018-08-08 10:31 | NUR ---
NURSE NOTES: PATIENT TOLERATED LOW FAT DIET THIS A.M. ATE 25% OF MEAL. STATES HE HAS NO APPETITE. VSS. AFEBRILE. DENIES PAIN AT THIS TIME.
--- NOTE | 2018-08-08 11:05 | NUR ---
Social Service Note SW met with patient to discuss alcohol dependency. Patient with presumptive medi-jewel. SW discussed community access centers and [facility] substance abuse hotline. Patient declined referrals for AA. Patient states he will return home with family upon discharge. Resources placed in chart and to be provided to patient upon discharge. SW discussed with primary nurse.
[2018-08-08 12:00] VITALS: BP 146/86
--- NOTE | 2018-08-08 13:02 | Discharge Summary ---
Discharge Summary Hospital Course Date of Admission August 06, 2018 at 15:40 Date of Discharge 08/08 Admitting Diagnosis Cholelithiasis TINY Bella is a 33 year old male who was admitted on August 06, 2018 at 15:40 for Cholelithiasis Hospital Course 33 year old male admitted with abdominal pain after 5 day alcohol binge intake since the of his father. #MIld Alcoholic pancreatitis -treated with IVF and NPO with improvement in symptoms. Lipase levels normalized -tolerated low fat diet. #Alcoholism #Fatty liver disease #Alcohol withdrawal syndrome #Acute stress disorder related to of his father -anxiety and tremor improved -stop benzos #Hypokalemia, resolved #Diabetes Mellitus, uncontrolled due to alcohol use -resume Metformin and Glipizide as outpatient #Kidney stones -no pain reported Discharge Discharge Disposition Patient was discharged to home Discharge Diagnoses: (1) Alcoholic pancreatitis Ricky Torres MD August 08, 2018 13:02
--- NOTE | 2018-08-08 14:58 | NUR ---
NURSE NOTES: DISCHARGE ORDER RECEIVED. PATIENT EDUCATION PROVIDED FOR DX AND DM. SUBSTANCE RESOURCES GIVEN AND ENCOURAGED PATIENT TO UTILIZE THEM. VERBALIZE UNDERSTANDING. ALL BELONGINGS RETURNED TO PATIENT. WILL F/U WITH PCP DISCUSSED WITH PT AND HOSPITAL MD.
--- NOTE | 2018-08-08 18:15 | Progress Note ---
DATE: 08/08/2018 SUBJECTIVE: The patient continues to have anxiety, low energy, insomnia, and psychomotor agitation. MENTAL STATUS EXAMINATION: The patient is alert and oriented times self, place, and situation. Mood is anxious. Affect is constricted. Congruent with mood. Thought process is concrete. Thought content, no suicidal or homicidal ideations. ASSESSMENT: 1. Alcohol dependence. 2. Alcohol withdrawal. PLAN: We will continue current medications. Provide the patient with reality orientation and supportive therapy. Prince Monaco M.D. DR: SUKHDEEP JOB#: [id number] CC:
== END 2018-08-08 14:55 | disposition home or self-care (01) | DRG 282 ==
LOC: EDBD 13:31 → EMR 15:20 → 3E 15:40 → EDBEDREQ 16:48 → 3E 08-08 08:10
DX: K85.20 Alcohol induced acute pancreatitis without necrosis or infection (principal); E11.65 Type 2 diabetes mellitus with hyperglycemia; F10.239 Alcohol dependence with withdrawal, unspecified; E87.6 Hypokalemia; N20.0 Calculus of kidney; F43.0 Acute stress reaction; Z79.84 Long term (current) use of oral hypoglycemic drugs; K70.0 Alcoholic fatty liver
CPT/HCPCS: 36415; 74176; 76700; 80048; 80053; 80307; 80329; 81003; 82962; 83036; 83690; 83735; 84132; 85025; 85610; 96361; 96374; 96375; 96376; 99285; J1815; J2405; J8499